=== PATIENT | female | born 1995 | race African-American/Black ===

== ENCOUNTER 2025-06-15 13:17 | Outpatient (AMB) | payer OTHER, SELFPAY ==
--- NOTE | 2025-06-15 13:20 | MHC.OFFVIS ---
Intake Visit Reasons: FU - R/s from 06/08/25 Allergies No Known Allergies Allergy (Verified 04/18/25 09:07) HPI Comments Details: 29 years old woman with migraine without aura type of headaches. She has been having headaches since she was in high school. She was prescribed sumatriptan and propranolol but she had not started any of those medicines stating that right after she found that she was . She was not having too many headaches at this time. She was happy with which was ending in November. [facility] Medical History (Updated 06/15/25 @ 13:26 by Benita Garcia MD) Migraine without aura Review of Systems Const Details: No significant headaches Physical Exam Neuro Other: Mental Status: Alert and oriented to person, place, and time. Normal attention. Normal spontaneous speech, fluency, and comprehension. No obvious issues with mood and memory. Affect is appropriate. Cranial Nerves: CN II: Visual nicholson full to confrontation, visual acuity intact. CN III, IV, : Pupils equal, round, reactive to light and accommodation. Extraocular movements are normal. CN V: Facial sensation is normal. CN VII: Facial movements symmetrical. CN VIII: Hearing intact to bedside conversation is normal. CN IX, X: Palate elevates symmetrically. CN XI: Shoulder shrug and head turn symmetrical. CN XII: Tongue midline without atrophy or fasciculations. Extrapyramidal: Full facial expressions and blinking. No rigidity. Movements are appropriate with no tremor or abnormality. Speech: Normal; no dysarthria or tremor. Assessment & Plan Assessment & Plan (1) Migraine without aura: Code(s): G43.009 - Migraine without aura, not intractable, without status migrainosus Category: Medical Qualifiers: Status migrainosus presence: without status migrainosus Intractability: not intractable Qualified Code(s): G43.009 - Migraine without aura, not intractable, without status migrainosus Plan 29 years old woman with chronic migraine without aura. Presently she was in decided not to take any medicines. She was educated about medicines during . Ideally, she should avoid taking any chemical or medicine during . On the other hand, if she would have a severe headache where she might be thinking about going to emergency room, she could take sumatriptan 50 mg 1 as needed. This would be after 1st trimester. We would keep an eye on her and see her in 3 months' time. Coding Level of Care Code Est Pt Level 4 (14365) Diagnoses Migraine without aura and without status migrainosus, not intractable G43.009 Status migrainosus presence: without status migrainosus Intractability: not intractable
--- OUTSIDE RECORDS SUMMARY | 2025-06-15 17:19 | XMS_ITS ---
Author Name [facility] Organization Unknown History of Medication Use Medication Directions Dispensed Refills Start Date End Date Stat us metoclopramide (REGLAN) 10 mg tablet Take 1 tablet (10 mg total) by mouth 3 (three) times a day before meals. 05/03/2025 active vitamin iron fum-folic acid 27-0.8 mg per tablet Take 1 tablet by mouth 1 (one) time each day. 03/20/2025 active ketoconazole (NIZORAL) 2 % shampoo Apply 1 Application topically 2 (two) times a week. 08/12/2024 active meloxicam (MOBIC) 7.5 mg tablet Take 1 tablet (7.5 mg total) by mouth 2 (two) times a day. 06/27/2024 active SUMAtriptan (IMITREX) 50 mg tablet May repeat dose once after 2 hours, if needed. 06/27/2024 active acetaminophen (TYLENOL) 500 mg tablet Take 1 tablet (500 mg total) by mouth every 6 (six) hours if needed. 05/19/2024 active Problems Problem Status Onset Date Problem Type Date of Resoluti on Source Genetic testing active 2025-05-[address] [facility] Increased nuchal translucency space on ultrasound active 2025-05-08 [facility] care, subsequent in first trimester active 2025-04-24 [facility] History of prior with IUGR active 2025-04-24 [facility]Act [facility] Immunizations Vaccine Date Source Lot Number Status Influenza Quadravalent, MDCK , 0.5ml, preservative free (Flucelvax) 6mo and older 08/20/2021 [facility] [id number] completed Influenza Quadravalent, MDCK , 0.5ml, preservative free (Flucelvax) 6mo and older 08/20/2021 [facility] [id number] completed Moderna SARS-CoV-2 COVID-19, mRNA, LNP-S, preservative free 04/05/2021 [facility] [id number] completed Moderna SARS-CoV-2 COVID-19, mRNA, LNP-S, preservative free 04/05/2021 [facility] [id number] completed Moderna SARS-CoV-2 COVID-19, mRNA, LNP-S, preservative free 03/06/2021 [facility] completed Moderna SARS-CoV-2 COVID-19, mRNA, LNP-S, preservative free 03/06/2021 [facility] completed Tdap Tetanus diptheria acell ular pertussis (Boostrix; Adacel) 7yo and older 02/26/2019 [facility] [id number] completed Tdap Tetanus diptheria acell ular pertussis (Boostrix; Adacel) 7yo and older 02/26/2019 [facility] [id number] completed Hepatitis A Pediatric (Havri x; Vaqta) 12mo to less than 19yo 04/11/2015 [facility] [id number] completed Hepatitis A Pediatric (Havri x; Vaqta) 12mo to less than 19yo 04/11/2015 [facility] [id number] completed Care Team Organization Name Specialty Phone Email Start Date End Da te [facility] 08/12/2022 05/23/20 24
== END 2025-06-15 13:26 | disposition home or self-care (01) ==
LOC: HO.HSM 13:18
PROVIDERS: PCP Internal Medicine; Visit Provider Psychiatry & Neurology Neurology
DX: G43.009 Migraine without aura, not intractable, without status migrainosus (principal)
CPT/HCPCS: 99214

== ENCOUNTER → 2025-06-15 13:17 | Outpatient (BNVA) | payer OTHER, SELFPAY | PROVIDERS: PCP Internal Medicine; Visit Provider Psychiatry & Neurology Neurology | DX: G43.009 Migraine without aura, not intractable, without status migrainosus (principal) | CPT/HCPCS: 99212 ==